=== PATIENT | female | born 1995 | race Caucasian/White ===

== ENCOUNTER 2022-05-27 11:55 | Day surgery (SDC) | payer OTHER ==
[2022-05-27] MEDS ORDERED: hydrALAZINE 20 MG/ML VIAL SLOW IVP PRN (12:02)
[2022-05-27 12:37] VITALS: BMI 37.5
[2022-05-27 13:06] LABS: Fetal Membranes Rupture RUPTURE DETECTED (No Rupture)
[2022-05-27] MEDS ORDERED: Betamet Acet/Betamet Na Ph 30 MG/5 ML VIAL ONE (13:18)
[2022-05-27] MEDS ORDERED: Penicillin G Potassium 5 MILL.UNITS VIAL ONE (13:18)
[2022-05-27] MEDS ORDERED: Penicillin G Potassium 5 MILL.UNITS in Sodium Chloride 0.9% 100 ML IVPB SCH (13:30)
[2022-05-27] MEDS ORDERED: Lactated Ringer's 1,000 ML IV SCH (13:30)
[2022-05-27] MEDS ORDERED: Betamet Acet/Betamet Na Ph 30 MG/5 ML VIAL IM SCH (13:30)
[2022-05-27 15:16] LABS: Fetal Membranes Rupture RUPTURE DETECTED (No Rupture)
== END 2022-05-27 15:36 | disposition home or self-care (01) ==
LOC: CSHLD/OP 11:55
PROVIDERS: ATTEND Obstetrics & Gynecology
DX: O42.913 Preterm premature rupture of membranes, unspecified as to length of time between rupture and onset of labor, third trimester (principal); O69.4XX0 Labor and delivery complicated by vasa previa, not applicable or unspecified; O26.893 Other specified pregnancy related conditions, third trimester; R10.30 Lower abdominal pain, unspecified; O24.419 Gestational diabetes mellitus in pregnancy, unspecified control; O13.3 Gestational [pregnancy-induced] hypertension without significant proteinuria, third trimester; O40.3XX0 Polyhydramnios, third trimester, not applicable or unspecified; O36.5930 Maternal care for other known or suspected poor fetal growth, third trimester, not applicable or unspecified; Z88.1 Allergy status to other antibiotic agents; Z3A.30 30 weeks gestation of pregnancy
CPT/HCPCS: 76815; 84112; 96360; 96361; 96365; 99285; J0702; J2540